=== PATIENT | female | born 1975 | race Caucasian/White ===

== ENCOUNTER → 2018-06-19 | Outpatient (CLI) | payer OTHER ==
--- NOTE | 2018-06-19 16:38 | Diagnostic Imaging Report ---
MRI of the left forefoot without contrast. History: Foot pain. Stress fracture. Decreased range of motion. Bunion. Technique: Multiplanar multisequence MRI of the foot without contrast. Comparison: None Findings: There is no acute fracture, subluxation or avascular necrosis. Mild scattered degenerative changes are seen. There is mild bone marrow edema in the proximal fourth metatarsal best seen on series 5 image 13 and series 2 image 2. This is likely degenerative and/or stress related. No ligamentous or tendon tear is seen. The visualized neurovascular bundles are intact. The visualized muscles are normal in size, signal intensity and morphology. Impression: There is mild bone marrow edema in the proximal fourth metatarsal which is likely degenerative and/or stress related. Signed by: Dr. Miguel Infante M.D. on 06/19/2018 4:35 PM
== END ==
LOC: MRI 14:48
PROVIDERS: ATTEND Podiatrist Foot & Ankle Surgery
DX: M79.672 Pain in left foot (principal); R60.9 Edema, unspecified

== ENCOUNTER → 2018-12-14 | Day surgery (SDC) | payer BC ==
[~2018-12-14] MED LIST: BUPIVACAINE HCL 0.5% 10ML MPF VIAL INJ ONE; BUPIVACAINE HCL 0.5% INJ 30 ML VIAL INJ ONE; BUPIVACAINE LIPOSOME/PF 266 MG/20 ML IJ ONE; CEFAZOLIN SOD 2 GM/D5W 50ML 50 ML IV ONE; CLARITIN; CYCLOBENZAPRINE5 MG; DEXAMETHASONE SOD PHOS INJ 4 MG/ML VIAL ONE; EFFEXOR XR 3737.5 MG; GABAPENTIN300 MG PO; HEPARIN SOD (PORCINE) 5,000 UNIT/ML VIAL ONE; IOPAMIDOL 610MG/1ML 300 MG/ML VIAL IV ONE; LIDOCAINE HCL 2% LOCAL INJ 5 ML SDV VIAL INJ ONE; MIDAZOLAM HCL 2 MG/2 ML VIAL ONE; ONDANSETRON HCL INJ 2MG/ML 2ML 2 MG/ML VIAL ONE; PANTOPRAZOLE SO40 MG PO; PROPOFOL IV EMULSION 10 MG/ML 20 ML VIAL ONE; SEVOFLURANE INHAL SOLN 250 ML PEN BTL ONE
--- OUTSIDE RECORDS SUMMARY | 2018-12-14 10:37 | XMS REPORT | Continuity of Care Document ---
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 08/20/2017 [facility] Diastolic (mm Hg) 60 08/20/2017 [facility] Respitory Rate 17 08/20/2017 [facility] Heart Rate 89 08/20/2017 [facility] Temperature Oral (F) 99.0 F 08/20/2017 [facility] Weight 76.364 08/20/2017 [facility] BMI Calculated 26.37 08/20/2017 [facility] Height 170.18 cm 08/20/2017 [facility] Respitory Rate 16 08/20/2017 [facility] Heart Rate 90 08/20/2017 [facility] Systolic (mm Hg) 113 08/20/2017 [facility] Diastolic (mm Hg) 48 08/20/2017 [facility] Systolic (mm Hg) 118 12/09/2016 [facility] Diastolic (mm Hg) 71 12/09/2016 [facility] Respitory Rate 12 12/09/2016 [facility] Respitory Rate 10 12/09/2016 [facility] Systolic (mm Hg) 108 12/09/2016 [facility] Diastolic (mm Hg) 69 12/09/2016 [facility] Respitory Rate 13 12/09/2016 [facility] Systolic (mm Hg) 101 12/09/2016 [facility] Diastolic (mm Hg) 68 12/09/2016 [facility] Heart Rate 64 12/09/2016 [facility] BMI Calculated 30.13 12/08/2016 [facility] Weight 87.273 12/08/2016 [facility] Height 170.18 cm 12/08/2016 [facility] Respitory Rate 17 01/02/2014 [facility] Systolic (mm Hg) 108 01/02/2014 [facility] Diastolic (mm Hg) 55 01/02/2014 [facility] Diastolic (mm Hg) 55 01/02/2014 [facility] Systolic (mm Hg) 107 01/02/2014 [facility] Respitory Rate 18 01/02/2014 [facility] Systolic (mm Hg) 108 01/02/2014 [facility] Diastolic (mm Hg) 64 01/02/2014 [facility] Respitory Rate 21 01/02/2014 [facility] Heart Rate 70 01/02/2014 [facility] Temperature Oral (F) 97.4 F 01/02/2014 [facility] Height 167.64 cm 12/23/2013 [facility] BMI Calculated 37.2 12/23/2013 [facility] Weight 104.545 12/23/2013 [facility] Encounters Location Location Details Encounter Type Encounter Number Reason For Visit Attending Provider ADM Date DC Date Status Source [facility] OBS Day Surgery [id number] Ricardo Pamunkey 01/01/2014 01/01/2014 [facility] OBS Day Surgery [id number] Ricardo Pamunkey 01/03/2014 01/03/2014 [facility] Day Surgery [id number] Agusto Amanda 12/09/2016 12/09/2016 [facility] Emergency [id number] Kalin Jones 08/20/2017 08/20/2017 [facility] Procedures Procedure Code Date Perfomer Comments Source Hysterectomy [id number] 07/17/2003 [facility] Hysterectomy [id number] 07/17/2003 [facility] Laparoscopic adhesiolysis [id number] [facility] Ankle manipulation [id number] [facility] Cholecystectomy [id number] [facility] Knee joint operation [id number] [facility] Ankle manipulation [id number] [facility] Cholecystectomy [id number] [facility] Knee joint operation [id number] [facility] Laparoscopic adhesiolysis [id number] [facility]
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
--- OUTSIDE RECORDS SUMMARY | 2018-12-14 10:37 | XMS REPORT | Summary of Care ---
Author Organization Unknown Address Unknown Phone Unavailable Encounter [facility](DEVI) [id number] Date(s): 01/01/14 - 01/01/[address] Discharge Disposition: Home Physician Attending: Ricardo Velásquez MD Physician Admitting: Ricardo Velásquez MD Physician_Referring: Ricardo Velásquez MD Reason for Visit ANKLE IMPINGEMENT, SPRAIN Vital Signs 1 2 3 Most recent to oldest [Reference Range]: 167.64 cm (12/23/13 2:24 PM) Height 97.4 DegF (01/02/14 7:15 AM) Temperature Oral [96.4-99.1 DegF] 108 mmHg (01/02/14 2:45 PM) 107 mmHg (01/02/14 2:30 PM) 108 mmHg (01/02/14 2:15 PM) Systolic Blood Pressure [90-140 mmHg] 55 mmHg *LOW* (01/02/14 2:45 PM) 55 mmHg *LOW* (01/02/14 2:30 PM) 64 mmHg (01/02/14 2:15 PM) Diastolic Blood Pressure [60-90 mmHg] 17 BRMIN (01/02/14 2:45 PM) 18 BRMIN (01/02/14 2:30 PM) 21 BRMIN *HI* (01/02/14 2:15 PM) Respiratory Rate [14-20 BRMIN] 70 bpm (01/02/14 7:15 AM) Peripheral Pulse Rate [60-100 bpm] 104.545 kg (12/23/13 2:24 PM) Weight 37.2 m2 (12/23/13 2:24 PM) Body Mass Index Problem List Condition Effective Dates Status Health Status Informant Ankle joint Active pain(Confirmed) Thyroid Active disorder(Confirmed) Allergies, Adverse Reactions, Alerts Substance Reaction Severity Status Mycinette Sore Throat Active [place] neomycin Active Medications ceFAZolin 2 gm, 100 mL, Route: IVPB, Drug form: INJ, ONCE, Dosing Weight 104.545, kg, Star t date: 01/02/14 7:16:00, Stop date: 01/02/14 7:16:00 Notes: Same as: Ancef Start Date: 01/02/14 Stop Date: 01/02/14 Status: Completed flumazenil 0.2 mg, 2 mL, Route: IVP, Drug form: INJ, PRN, Dosing Weight 104.545, kg, PRN Be nzodiazepine Reversal, Initial dose, Start date: 01/02/14 9:42:00, Duration: 30 day, Stop date: 02/01/14 9:41:00 Notes: (Same as: Romazicon) Start Date: 01/02/14 Stop Date: 01/02/14 Status: Discontinued Lactated Ringers Injection IV 1,000 mL 1,000 mL, Rate: 25 ml/hr, Infuse over: 40 hr, Route: IV, Dosing Weight 104.545 k g, Total Volume: 1,000, Start date: 01/02/14 7:16:00, Duration: 30 day, Stop laci e: 02/01/14 7:15:00 Start Date: 01/02/14 Stop Date: 01/02/14 Status: Discontinued lidocaine 1% 0.5 mL, Route: INTRADERM, Dosing Weight 104.545, kg, ONCALL, Start date: 4 8:00:00, Duration: 1 doses or times Start Date: 01/02/14 Stop Date: 01/02/14 Status: Completed meperidine 12.5 mg, 0.25 mL, Route: IVP, Drug form: INJ, Q30Min, Dosing Weight 104.545, kg, PRN Other -See Comment, For shivering, Start date: 01/02/14 9:42:00, Duration: 2 doses or times, Stop date: Limited # of times Notes: (Same As: Demerol) Start Date: 01/02/14 Stop Date: 01/02/14 Status: Discontinued morphine Sulfate 2 mg, 0.25 mL, Route: IVP, Drug form: INJ, Q5Min, Dosing Weight 104.545, kg, PRN Pain Score 4-6, Start date: 01/02/14 9:42:00, Duration: 5 doses or times, Stop date: Limited # of times Notes: (Same as: MORPhine Sulfate) Start Date: 01/02/14 Stop Date: 01/02/14 Status: Discontinued naloxone 0.04 mg, 0.1 mL, Route: IVP, Drug form: INJ, Q2MIN, Dosing Weight 104.545, kg, P RN Narcotic Reversal, Start date: 01/02/14 9:42:00, Duration: 8 doses or times, Stop date: Limited # of times Notes: Same as Narcan Start Date: 01/02/14 Stop Date: 01/02/14 Status: Discontinued [place] 7.5/325 oral tablet 1 tab, Route: PO, Dosing Weight 104.545, kg, ONCE, Start date: 01/02/14 15:09:00 , Stop date: 01/02/14 15:09:00 Start Date: 01/02/14 Stop Date: 01/02/14 Status: Completed ondansetron 4 mg, 2 mL, Route: IVP, Drug form: INJ, ONCE, Dosing Weight 104.545, kg, PRN Duy sea & Vomiting, Start date: 01/02/14 9:42:00 Notes: (Same as: Zofran) Start Date: 01/02/14 Stop Date: 01/02/14 Status: Discontinued promethazine + Sodium Chloride 0.9% IV 50 mL 6.25 mg, 0.25 mL, Route: IVPB, ONCE, Dosing Weight 104.545, kg, PRN Nausea & Vomiting, Start date: 01/02/14 9:42:00 Notes: Do not give IV push. (Same as: Phenergan) Start Date: 01/02/14 Stop Date: 01/02/14 Status: Discontinued ropivacaine 0.1% in NS - site 1 400 mL Route: NERVE BLOCK, Start date: 01/02/14 13:21:00 400 mL, Drug Form: INJ, Dosing Weight 104.545, kg, Duration: 30 day, Stop date: 02/01/14 13:20:00, 12 ml/hr Start Date: 01/02/14 Stop Date: 01/02/14 Status: Discontinued Synthroid 75 mcg (0.075 mg) oral tablet 75 microgram=1 tab, PO, Daily, # 30 tab, 0 Refill(s) Start Date: 12/23/13 Status: Ordered Vitamin B-12 1000 mcg/mL injectable solution 0 Refill(s) Start Date: 12/23/13 Status: Ordered Vitamin D 50,000 intl units oral capsule 50,000 IntlUnit=1 cap, PO, 5X Day, # 8 cap, 0 Refill(s) Start Date: 12/23/13 Status: Ordered Results CHEM PANEL Most recent to 1 oldest [Reference Range]: Glucose Lvl [70-99 84 mg/dL 1 mg/dL] (12/23/13 12:45 PM) 1Interpretive Data: Adult reference range values reflect the clinical guidelines of the [place] [employer]. HEMATOLOGY Most recent to 1 oldest [Reference Range]: Hgb [12.0-16.0 g/dL] 13.8 g/dL (12/23/13 12:45 PM) Hct [36.0-48.0 %] 40.0 % (12/23/13 12:45 PM) Medications Administered During Your Visit No data available for this section Immunizations No data available for this section Procedures Procedure Type Body Site Date of Procedure Related Diagnosis Hysterectomy 2003 Laparoscopic adhesiolysis Social History Social History Type Response Smoking Status Unknown if ever smoked, Exposure to Tobacco Smoke None, Cigarette Smoking Last 365 Days No, Reg Smoking Cessation Counseling No
--- OUTSIDE RECORDS SUMMARY | 2018-12-14 10:37 | XMS REPORT | Summary of Care ---
Author Organization Unknown Address Unknown Phone Unavailable Encounter [facility] Alyse_stephany(DEVI) [id number] Date(s): 01/03/14 - 01/03/[address] Discharge Disposition: Home Physician Attending: Ricardo Velásquez MD Reason for Visit RT ANKLE SPRAIN RT ANKLE PAIN POST OPER Problem List Condition Effective Dates Status Health Status Informant Ankle joint Active pain(Confirmed) Thyroid Active disorder(Confirmed) Allergies, Adverse Reactions, Alerts Substance Reaction Severity Status Mycinette Sore Throat Active [place] neomycin Active Medications No data available for this section Medications Administered During Your Visit No data available for this section Immunizations No data available for this section Social History Social History Type Response Smoking Status Unknown if ever smoked, Exposure to Tobacco Smoke None, Cigarette Smoking Last 365 Days No, Reg Smoking Cessation Counseling No
--- OUTSIDE RECORDS SUMMARY | 2018-12-14 10:37 | XMS REPORT | Summary of Care ---
Author Author [facility] Organization [facility] Address Unknown Phone Unavailable Encounter NELSON Yousif(DEVI) [id number] Date(s): 12/09/16 - 12/09/16 [id number] [place] [address]- Discharge Disposition: Home or Self Care Attending Physician: Agusto Patel MD Referring Physician: Agusto Patel MD Vital Signs 1 2 3 Most recent to oldest [Reference Range]: 170.18 cm (12/08/16 11:17 AM) Height 118/71 mmHg (12/09/16 1:40 PM) 108/69 mmHg (12/09/16 1:30 PM) 101/68 mmHg (12/09/16 1:15 PM) Blood Pressure [90-140/60-90 mmHg] 12 BRMIN *LOW* (12/09/16 1:40 PM) 10 BRMIN *LOW* (12/09/16 1:30 PM) 13 BRMIN *LOW* (12/09/16 1:15 PM) Respiratory Rate [14-20 BRMIN] 64 bpm (12/09/16 10:29 AM) Peripheral Pulse Rate [60-100 bpm] 87.273 kg (12/08/16 11:17 AM) Weight 30.13 m2 (12/08/16 11:17 AM) Body Mass Index Problem List Condition Effective Dates Status Health Status Informant Ankle joint Active pain(Confirmed) Meniscus Active tear(Confirmed)1 Thyroid Active disorder(Confirmed) 1Left knee Allergies, Adverse Reactions, Alerts Substance Reaction Severity Status Mycinette Sore Throat Active [place] neomycin Active Medications acetaminophen (ANES) Route: IV, Drug form: INJ, ONCE, Stop date: 12/09/16 11:51:00 CDT Start Date: 12/09/16 Stop Date: 12/09/16 Status: Completed acetaminophen-hydrocodone 325 mg-5 mg oral tablet 1 tab, Route: PO, Drug Form: TAB, Dosing Weight 87.273, kg, Q4H, PRN Pain Score 4-6, Start date: 12/09/16 11:39:00 CDT, Duration: 30 day, Stop date: 01/08/17 11 :38:00 CDT Notes: (Same as: [place] 325/5) Do not exceed 4gm/day of acetaminophen. Start Date: 12/09/16 Stop Date: 12/09/16 Status: Discontinued ANES acetaminophen 1,000 mg, 2 tab, Route: PO, Drug form: TAB, ONCE, Dosing Weight 87.273, kg, PRN Pain Score 1-3, Start date: 12/09/16 11:43:00 CDT, Duration: 1 doses or times, S top date: Limited # of times Notes: Max acetaminophen 4000 mg/day (4 gm/day). (Same as: Tylenol Extra Streng th) Start Date: 12/09/16 Stop Date: 12/09/16 Status: Discontinued ANES flumazenil 0.2 mg, 2 mL, Route: IVP, Drug form: INJ, PRN, Dosing Weight 87.273, kg, PRN Pineda zodiazepine Reversal, Initial dose, Start date: 12/09/16 11:43:00 CDT, Duration: 30 day, Stop date: 01/08/17 11:42:00 CDT Notes: (Same as: Romazicon) Start Date: 12/09/16 Stop Date: 12/09/16 Status: Discontinued ANES glycopyrrolate 0.2 mg, 1 mL, Route: IVP, Drug form: INJ, Q5Min, Dosing Weight 87.273, kg, PRN B radycardia, Start date: 12/09/16 11:43:00 CDT, Duration: 3 doses or times, Stop date: Limited # of times Notes: (Same as: Robinul) Start Date: 12/09/16 Stop Date: 12/09/16 Status: Discontinued ANES HYDROmorphone 0.5 mg, 0.25 mL, Route: IVP, Drug form: INJ, Q5Min, Dosing Weight 87.273, kg, UT N Pain Score 7-10, Start date: 12/09/16 11:43:00 CDT, Duration: 4 doses or times , Stop date: Limited # of times Notes: Same as Dilaudid Start Date: 12/09/16 Stop Date: 12/09/16 Status: Discontinued ANES ketOROLAC 30 mg, 1 mL, Route: IVP, Drug form: INJ, ONCE, Dosing Weight 87.273, kg, Start d ate: 12/09/16 11:43:00 CDT, Duration: 1 doses or times, Stop date: 12/09/16 11:4 3:00 CDT Notes: (Same as:Toradol) IV bolus must be given >15 seconds. Give IM administration slowly and deeply into the muscle.Not for use > 4 days MEDICATION WASTE Product Size: 30 mgProduct Wasted: ___ mg Start Date: 12/09/16 Stop Date: 12/09/16 Status: Discontinued ANES meperidine 12.5 mg, 0.25 mL, Route: IVP, Drug form: INJ, Q30Min, Dosing Weight 87.273, kg, PRN Other -See Comment, For shivering, Start date: 12/09/16 11:43:00 CDT, Durati on: 2 doses or times, Stop date: Limited # of times Notes: (Same as: Demerol) "Use Precaution in Elderly, Seizure disorders, and Re nal impairment" Start Date: 12/09/16 Stop Date: 12/09/16 Status: Discontinued ANES morphine Sulfate 2 mg, 0.2 mL, Route: IVP, Drug form: INJ, Q5Min, Dosing Weight 87.273, kg, PRN P ain Score 4-6, Start date: 12/09/16 11:43:00 CDT, Duration: 5 doses or times, St op date: Limited # of times Notes: (Same as:MORPhine Sulfate) Start Date: 12/09/16 Stop Date: 12/09/16 Status: Discontinued ANES naloxone 0.4 mg, 1 mL, Route: IVP, Drug form: INJ, Q2MIN, Dosing Weight 87.273, kg, PRN N arcotic Reversal, Start date: 12/09/16 11:43:00 CDT, Duration: 8 doses or times, Stop date: Limited # of times Notes: Same as Narcan Start Date: 12/09/16 Stop Date: 12/09/16 Status: Discontinued ANES ondansetron 4 mg, Route: IVP, ONCE, Dosing Weight 87.273, kg, PRN Nausea & Vomiting, Start date: 12/09/16 11:43:00 CDT Start Date: 12/09/16 Stop Date: 12/09/16 Status: Completed ANES promethazine + sodium chloride 0.9% INJ 50 mL 6.25 mg, 0.25 mL, Route: IVPB, ONCE, Dosing Weight 87.273, kg, PRN Nausea & Vomiting, Start date: 12/09/16 11:43:00 CDT Notes: Do not give IV push. (Same as: Phenergan) Start Date: 12/09/16 Stop Date: 12/09/16 Status: Discontinued ceFAZolin 2 gm, 100 mL, Route: IVPB, Drug form: INJ, ONCALL, Start date: 12/08/16 23:00:00 CDT, Duration: 21 hr, Stop date: 12/09/16 19:59:00 CDT, ABX Indication: Surgical Prophylaxis Notes: Same as: Ancef Start Date: 12/08/16 Stop Date: 12/09/16 Status: Discontinued ceFAZolin (ANES) (ANES) Route: IV, Drug form: INJ, Start date: 12/09/16 10:48:00 CDT, Stop date: 7 11:48:00 CDT Start Date: 12/09/16 Stop Date: 12/09/16 Status: Completed dexamethasone (ANES) Route: IV, Drug form: INJ, ONCE, Stop date: 12/09/16 11:46:00 CDT Start Date: 12/09/16 Stop Date: 12/09/16 Status: Completed fentaNYL (ANES) Route: IV, Drug form: INJ, ONCE, Stop date: 12/09/16 11:46:00 CDT Start Date: 12/09/16 Stop Date: 12/09/16 Status: Completed ketOROLAC (ANES) IM, ONCE Start Date: 12/09/16 Stop Date: 12/09/16 Status: Completed ketOROLAC (ANES) IV, ONCE Start Date: 12/09/16 Stop Date: 12/09/16 Status: Completed lidocaine (ANES) Route: IV, Drug form: INJ, ONCE, Stop date: 12/09/16 11:46:00 CDT Start Date: 12/09/16 Stop Date: 12/09/16 Status: Completed LR 1000 mL INJ (ANES) Route: IV, Total Volume: 1,000, Start date: 12/09/16 10:49:00 CDT, Stop date: 11:49:00 CDT Start Date: 12/09/16 Stop Date: 12/09/16 Status: Completed metoclopramide (ANES) Route: IV, Drug form: INJ, ONCE, Stop date: 12/09/16 11:51:00 CDT Start Date: 12/09/16 Stop Date: 12/09/16 Status: Completed midazolam (ANES) Route: IV, Drug form: SOLN, ONCE, Stop date: 12/09/16 11:46:00 CDT Start Date: 12/09/16 Stop Date: 12/09/16 Status: Completed morphine Sulfate 2 mg, 0.2 mL, Route: IVP, Drug form: INJ, Q3H, Dosing Weight 87.273, kg, PRN [place] n Score 1-3, Start date: 12/09/16 11:39:00 CDT, Duration: 30 day, Stop date: 11:38:00 CDT Notes: (Same as:MORPhine Sulfate) Start Date: 12/09/16 Stop Date: 12/09/16 Status: Discontinued ondansetron (ANES) Route: IV, Drug form: INJ, ONCE, Stop date: 12/09/16 12:01:00 CDT Start Date: 12/09/16 Stop Date: 12/09/16 Status: Completed propofol (ANES) Route: IV, Drug form: INJ, ONCE, Stop date: 12/09/16 11:46:00 CDT Start Date: 12/09/16 Stop Date: 12/09/16 Status: Completed Results No data available for this section Immunizations No data available for this section Procedures Procedure Date Related Diagnosis Body Site Hysterectomy 2004 Ankle manipulation Cholecystectomy Knee joint operation Laparoscopic adhesiolysis Social History Social History Type Response Smoking Status Reg Smoking Cessation Counseling No; Never smoker; Exposure to Tobacco Smoke None; Cigarette Smoking Last 365 Days No Assessment and Plan No data available for this section
--- OUTSIDE RECORDS SUMMARY | 2018-12-14 10:38 | XMS REPORT ---
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
--- OUTSIDE RECORDS SUMMARY | 2018-12-14 10:38 | XMS REPORT ---
Author [facility] Address Unknown Phone Unavailable Care Team Providers Care Assisted Living Executive Director Name Role Phone Carlos HOPE Unavailable Unavailable Problems This patient has no known problems. Allergies, Adverse Reactions, Alerts This patient has no known allergies or adverse reactions. Medications This patient has no known medications. Results Test Description Test Time Test Comments Text Results Atomic Results Result Comments MRI FOOT LEFT WO 2018-06-19 16:32:00 [address] [address] Patient Name: COLBY TINEO MR #: [id number] : 1975 Age/Sex: 42/F Req #: [id number] Adm Physician: Ordered by: BRYSON HOPE DPM Report #: [id number] Location: MRI Room/Bed: Procedure: [id number] MRI/MRI FOOT LEFT WO Exam Date: Exam Time: REPORT STATUS: Signed MRI of the left forefoot without contrast. History: Foot pain. Stress fracture. Decreased range of motion. Bunion. Technique: Multiplanar multisequence MRI of the foot without contrast. Comparison: None Findings: There is no acute fracture, subluxation or avascular necrosis. Mild scattered degenerative changes are seen. There is mild bone marrow edema in the proximal fourth metatarsal best seen on series 5 image 13 and series 2 image 2. This is likely degenerative and/or stress related. No ligamentous or tendon tear is seen. The visualized neurovascular bundles are intact. The visualized muscles are normal in size, signal intensity and morphology. Impression: There is mild bone marrow edema in the proximal fourth metatarsal which is likely degenerative and/or stress related. Signed by: Dr. Miguel Infante M.D. on 06/19/2018 4:35 PM Dictated By: MIGUEL INFANTE MD, MD [id number] Transcribed By: LADAN on 06/19/18 [id number] COPY TO: BRYSON HOPE DPM
[2018-12-14 15:20] VITALS: BP 106/68
--- NOTE | 2019-01-01 04:13 | Operative Report ---
DATE OF PROCEDURE: 12/14/2018 SURGEON: Bharati Arriaga DPM WIRE STITCHER OPERATOR: None. PREOPERATIVE DIAGNOSES: 1. Left foot 4th metatarsal fracture. 2. Left foot 5th metatarsal fracture. 3. Left foot Tailor's bunion. POSTOPERATIVE DIAGNOSES: 1. Left foot 4th metatarsal fracture. 2. Left foot 5th metatarsal fracture. 3. Left foot Tailor's bunion. PROCEDURES: 1. Left foot 4th metatarsal fracture repair with subchondroplasty. 2. Left foot 5th metatarsal fracture repair with subchondroplasty. 3. Left foot bone marrow harvesting from calcaneus. 4. Left foot Tailor's bunionectomy. 5. Use of intraoperative fluoroscopy. 6. Application of posterior splint. 7. Left tibial nerve block. HEMOSTASIS: Thigh tourniquet at 250 mmHg. INJECTABLES: 20 mL of 0.5% lidocaine plain. DESCRIPTION OF PROCEDURE: After informed consent was obtained, the patient was brought to the operating room and placed on the operating table in supine position. General anesthesia was obtained. Pneumatic thigh tourniquet was applied to the left thigh. The left lower extremity was scrubbed, prepped and draped in the usual aseptic manner. Attention was then directed to the left heel, where utilizing the Arthrex bone marrow aspiration kit, approximately 15 mL of bone marrow aspirate was taken from the left calcaneous. Next, the trocar was removed and incision site was coapted utilizing a 4-0 nylon. Next, the left lower extremity 250 mmHg. Attention directed to the left foot 4th metatarsal, where utilizing intraoperative fluoroscopy the proximal site was visualized and triangulated. Next, utilizing the subchondroplasty mixed with bone graft which was then injected along the fracture site utilizing the intraoperative fluoroscopy. Next, attention was directed to the left foot 5th metatarsal, where the fracture was visualized and then injected with the bone graft. Intraoperative fluoroscopy was used, which showed good reduction of deformity. The surgical puncture sites were then coapted utilizing 4-0 nylon. Attention was directed to the left foot 5th metatarsophalangeal joint, where utilizing sharp dissection technique. Operative structures were identified and retracted. All bleeders were identified, ligated and cauterized as necessary. Next, the lateral hypertrophic eminence of the 5th metatarsal head from surgical site utilizing sagittal saw. All bony prominences were . The wound was then irrigated utilizing copious amounts of normal saline. The wound was then coapted utilizing 0-Vicryl and 4-0 nylon. Surgical sites were then injected with approximately 15 mL of 0.5% plain followed by a left tibial nerve block consisting of 5 mL of 0.5% Marcaine. The left lower extremity was placed in sterile dressing consisting of Xeroform, 4x4s, Kerlix, and JULITO wrap. Left lower extremity was then placed into a dry sterile dressing consisting of Xeroform, 4x4s, Kerlix, and JULITO wrap. Pneumatic thigh tourniquet was . The patient tolerated the procedure and anesthesia well. The patient was transferred back to recovery room with vital signs stable and neurovascular status intact to preop status. RAMSEY Tracy/GALOL /[id number]
== END | disposition home or self-care (01) ==
LOC: OR 10:34
PROVIDERS: ATTEND Podiatrist Foot & Ankle Surgery
DX: S92.342A Displaced fracture of fourth metatarsal bone, left foot, initial encounter for closed fracture (principal); S92.352A Displaced fracture of fifth metatarsal bone, left foot, initial encounter for closed fracture; M21.622 Bunionette of left foot; K21.9 Gastro-esophageal reflux disease without esophagitis; R94.31 Abnormal electrocardiogram [ECG] [EKG]; F41.9 Anxiety disorder, unspecified; X58.XXXA Exposure to other specified factors, initial encounter; Z88.1 Allergy status to other antibiotic agents
CPT/HCPCS: 28110; 28899; 38232; 93005; C1713; J0690; J1100; J1644; J2001; J2250; J2405; J2704

== ENCOUNTER 2019-10-15 16:56 | Emergency (ER) | payer BC ==
[~2019-10-15] VITALS: Ht 170.2 cm; Wt 79.4 kg
[~2019-10-15 16:56] MED LIST changes: -BUPIVACAINE HCL 0.5% 10ML MPF VIAL INJ ONE; -BUPIVACAINE HCL 0.5% INJ 30 ML VIAL INJ ONE; -BUPIVACAINE LIPOSOME/PF 266 MG/20 ML IJ ONE; -CEFAZOLIN SOD 2 GM/D5W 50ML 50 ML IV ONE; -DEXAMETHASONE SOD PHOS INJ 4 MG/ML VIAL ONE; -HEPARIN SOD (PORCINE) 5,000 UNIT/ML VIAL ONE; -IOPAMIDOL 610MG/1ML 300 MG/ML VIAL IV ONE; -LIDOCAINE HCL 2% LOCAL INJ 5 ML SDV VIAL INJ ONE; -MIDAZOLAM HCL 2 MG/2 ML VIAL ONE; -ONDANSETRON HCL INJ 2MG/ML 2ML 2 MG/ML VIAL ONE; -PROPOFOL IV EMULSION 10 MG/ML 20 ML VIAL ONE; -SEVOFLURANE INHAL SOLN 250 ML PEN BTL ONE
[2019-10-15] MEDS ORDERED: ASPIRIN 81 MG CHEW TAB PO ONE (17:15)
[2019-10-15 17:26] LABS: BASOPHILS # (AUTO) 0.1 (0.0-0.1); BASOPHILS % 0.6 % (0.0-1.0); EOSINOPHILS # (AUTO) 0.2 (0.0-0.4); EOSINOPHILS % 2.2 % (0.0-6.0); HEMATOCRIT 38.8 % (34.2-44.1); HEMOGLOBIN 12.9 g/dL (12.0-16.0); LYMPHOCYTES # (AUTO) 2.7 (1.0-3.2); LYMPHOCYTES % 33.8 % (18.0-39.1); MEAN CORPUSCULAR HEMOGLOBIN 28.7 pg (28-32); MEAN CORPUSCULAR HGB CONC 33.2 g/dL (31-35); MEAN CORPUSCULAR VOLUME 86.4 fL (81-99); MONOCYTES # (AUTO) 0.5 (0.2-0.8); MONOCYTES % 6.4 % (4.4-11.3); NEUTROPHILS # (AUTO) 4.5 (2.1-6.9); NEUTROPHILS % 56.7 % (38.7-80.0); PLATELET COUNT 277 x10e3/uL (140-360); RED BLOOD COUNT 4.49 x10e6/uL (3.6-5.1); RED CELL DISTRIBUTION WIDTH 12.9 % (11.7-14.4)
[2019-10-15 17:39] LABS: INR 0.94; PROTHROMBIN TIME 13.1 seconds (11.9-14.5)
[2019-10-15 17:40] LABS: PARTIAL THROMBOPLASTIN TIME 27.8 seconds (23.8-35.5)
[2019-10-15 17:46] LABS: ALANINE AMINOTRANSFERASE 15 IU/L (0-55); ALBUMIN/GLOBULIN RATIO 1.6 (0.8-2.0); ALKALINE PHOSPHATASE 53 IU/L (40-150); ANION GAP 9.8 mmol/L (8-16); BLOOD UREA NITROGEN 19 mg/dL (7-26); BUN/CREATININE RATIO 24 (6-25); CALCIUM 8.9 mg/dL (8.4-10.2); CARBON DIOXIDE 28 mmol/L (22-29); CHLORIDE 106 mmol/L (98-107); CREATINE KINASE 120 IU/L (29-168); EST GLOMERULAR FILTRATION RATE > 60 ML/MIN (60-); GLUCOSE 82 mg/dL (74-118); POTASSIUM 3.8 mmol/L (3.5-5.1); SODIUM 140 mmol/L (136-145)
[2019-10-15] MEDS ORDERED: KETOROLAC TROMETHAMINE 30 MG/ML VIAL IV STA (18:20)
[2019-10-15 19:12] LABS: BILIRUBIN,URINE NEGATIVE (NEGATIVE); CLARITY,URINE SL CLOUDY (CLEAR); COLOR,URINE YELLOW (YELLOW); KETONES,URINE NEGATIVE (NEGATIVE); LEUKOCYTE ESTERASE ,URINE NEGATIVE (NEGATIVE); NITRITE,URINE NEGATIVE (NEGATIVE); PROTEIN,URINE DIPSTICK NEGATIVE (NEGATIVE); URINE UROBILINOGEN 0.2 mg/dL (0.2 - 1)
[2019-10-15 19:27] LABS: BACTERIA,URINE MANY /HPF; EPITHELIAL CELLS,URINE MODERATE /LPF; RBC,URINE 0-5 /HPF (0-5)
--- NOTE | 2019-10-15 19:46 | Diagnostic Imaging Report ---
EXAMINATION: CHEST SINGLE (PORTABLE) INDICATION: ^ERMD ORDER ^[id number] ^1845 ^Y. COMPARISON: None FINDINGS: AP view TUBES and LINES: None. LUNGS: Lungs are well inflated. There is no evidence of pneumonia or pulmonary edema. PLEURA: No pleural effusion or pneumothorax. HEART AND MEDIASTINUM: The cardiomediastinal silhouette is unremarkable. BONES AND SOFT TISSUES: No acute osseous lesion. Soft tissues are unremarkable. UPPER ABDOMEN: No free air under the diaphragm. IMPRESSION: No acute thoracic abnormality. Signed by: Gamal Hopson MD on 10/15/2019 7:42 PM
[2019-10-15 20:18] VITALS: BP 113/71
== END 2019-10-15 20:25 | disposition home or self-care (01) ==
LOC: ER 16:56
DX: R07.89 Other chest pain (principal); K21.9 Gastro-esophageal reflux disease without esophagitis; Z98.84 Bariatric surgery status
CPT/HCPCS: 36415; 71045; 80053; 81001; 82550; 82553; 83880; 84484; 84702; 85025; 85379; 85610; 85730; 93005; 99284; J1885